=== PATIENT | female | born 1975 | race Caucasian/White ===

== ENCOUNTER 2019-05-22 08:24 | Emergency (ER) | payer OTHER ==
[~2019-05-22] VITALS: Ht 152.4 cm; Wt 54.9 kg
[~2019-05-22 08:24] MED LIST: AVAPRO300 MG; SYNTHROID200 MCG
[2019-05-22] MEDS ORDERED: CATAPRES0.2 MG PO (08:42)
[2019-05-22] MEDS ORDERED: CARVEDILOL6.25 MG (08:42)
[2019-05-22] MEDS ORDERED: SEPTRA (08:44)
== END 2019-05-22 15:16 | disposition home or self-care (01) ==
LOC: ER 08:24
DX: N83.201 Unspecified ovarian cyst, right side (principal); D25.1 Intramural leiomyoma of uterus

== ENCOUNTER 2020-05-13 14:55 | Emergency (ER) | payer OTHER ==
[~2020-05-13] VITALS: Ht 152.4 cm; Wt 59.9 kg
[~2020-05-13 14:55] MED LIST changes: +CARVEDILOL6.25 MG; +CATAPRES0.2 MG PO; +SEPTRA
[2020-05-13] MEDS ORDERED: COZAAR50 MG (15:26)
[2020-05-13] MEDS ORDERED: CARVEDILOL25 M1 (15:26)
== END 2020-05-13 17:40 | disposition home or self-care (01) ==
LOC: ER 14:55
DX: R21 Rash and other nonspecific skin eruption (principal); T49.4X5A Adverse effect of keratolytics, keratoplastics, and other hair treatment drugs and preparations, initial encounter; Y92.89 Other specified places as the place of occurrence of the external cause

== ENCOUNTER 2023-01-11 13:36 | Emergency (ER) | payer OTHER ==
[~2023-01-11] VITALS: Ht 149.9 cm; Wt 56.7 kg
[~2023-01-11 13:36] MED LIST changes: +CARVEDILOL25 M1; +COZAAR50 MG
== END 2023-01-11 17:22 | disposition home or self-care (01) ==
LOC: ER 13:36
DX: R42 Dizziness and giddiness (principal); F41.9 Anxiety disorder, unspecified